=== PATIENT | male | born 1985 | race African-American/Black ===

== ENCOUNTER 2021-03-17 15:25 | Inpatient (IN) ==
--- NOTE | 2021-03-17 16:08 | XRay Report ---
XR KUB/Abdomen 1 view CLINICAL HISTORY: Constipation. COMPARISON STUDY: No previous studies for comparison. TECHNIQUE: Single view of the abdomen. FINDINGS: There is gaseous distention of the stomach and mild dilatation of a few proximal small bowel loops. T he more distal small bowel is not visualized. Minimal fecal material seen within the colon involving the descending colon. There is no evidence for significant fecal stasis or impaction. There is no izzy dence for organomegaly or gross intra-abdominal mass. No abnormal calcifications are seen along the c ourse of the urinary tracts bilaterally. No acute osseous pathology. IMPRESSION: 1.Gaseous distention of the stomach and mild dilatation of proximal small bowel loops with distal sma ll and large bowel loops decompressed. Early partial small bowel obstruction cannot be excluded. The findings can also be seen with mild ileus. No significant fecal stasis or impaction. ACT 112: Negative or not required by law. Electronically signed by: Jeff Powell M.D. 03/17/2021 4:07 PM
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
[2021-03-17 17:32] LABS: Basophils # (auto) 0.01 K/uL (0-0.2); Basophils % (auto) 0.1 %; Eosinophils # (auto) 0.04 K/uL (0-0.5); Eosinophils % (auto) 0.4 %; Hemoglobin 14.8 g/dL (14.0-18.0); Immature Granulocytes # (auto) 0.02 K/uL (0.00-0.02); Immature Granulocytes % (auto) 0.2 %; Lymphocytes % (auto) 17.5 %; Mean Corpuscular Hemoglobin 29.1 pg (25-34); Mean Corpuscular Hgb Conc 34.4 g/dL (32-36); Mean Corpuscular Volume 84.6 fL (80-100); Mean Platelet Volume 10.4 fL (7.4-10.4); Monocytes # (auto) 0.66 K/uL (0.11-0.59); Monocytes % (auto) 6.8 %; Neutrophils # (auto) 7.28 K/uL (1.4-6.5); Platelet Count 313 K/uL (130-400); RDW Coefficient of Variation 12.8 % (11.5-14.5); RDW Standard Deviation 39.2 fL (36.4-46.3); Red Blood Count 5.08 M/uL (4.7-6.1); White Blood Count 9.71 K/uL (4.8-10.8)
[2021-03-17] MEDS ORDERED: ONDANSETRON INJ 2 MG/ML 2 ML VIAL IV STA (17:38)
[2021-03-17 17:54] LABS: BUN Creatinine Ratio 12.5 (10-20); Calcium 9.9 mg/dl (8.5-10.1); Creatinine Clr Calc Pharmacy 110.7 ml/min; Est GFR (African American) 91.8 ml/min; Est GFR (Non-African American) 79.2 ml/min
[2021-03-17 17:57] LABS: Albumin Globulin Ratio 0.8 (0.9-2); Bilirubin,Total 2.6 mg/dl (0.2-1); Globulin 5.2 gm/dl (2.5-4.0); Total Protein 9.2 gm/dl (6.4-8.2)
[2021-03-17] MEDS ORDERED: OPTIRAY 320 100ml IV ONE (18:16)
--- NOTE | 2021-03-17 18:49 | CT Scan Report ---
CT abd pelvis IV con only CLINICAL HISTORY: constipation, possible SBO, gaseous stomach and upper small bowel on abdominal film s COMPARISON STUDY: Abdominal radiographs from 03/17/2021 CT DOSE: 651.10 mGy.cm TECHNIQUE: Standard CT of the Abdomen and Pelvis was performed with IV contrast. A dose lowering luca hnique was utilized adhering to the principles of ALARA. Contrast Volume: Optiray 320, 94 ml. The patient did not receive oral contrast. FINDINGS: Lung base: The lung bases are clear. Abdominal cavity and bowel: As suspected radiographically, there is evidence for high-grade partial s mall bowel obstruction in the region of the distal ileum with transition zone seen on images 204 thro ugh 230. The distal ileum is decompressed as is the colon. There is moderate to marked distention of the stomach with air and fluid. There is moderate dilatation of the jejunum and ileum to the level of transition with air-fluid levels present proximally and only fluid seen distally. These findings alberto ror the radiographic findings. The findings are most likely due to adhesions. There are surgical clip s present in the right side of the pelvis. No inflammatory changes are seen. There is no evidence for free air. There is a normal appendix in th e right lower quadrant. Liver: There is homogeneous attenuation of the liver parenchyma. There is no evidence for enhancing m ass lesion. Spleen: There is homogeneous attenuation of the splenic parenchyma. There is no enhancing mass lesion . Pancreas: There is homogeneous attenuation of the pancreatic parenchyma. There is no evidence for mas s lesion or peripancreatic fluid collection. Gall Bladder: The gallbladder is well distended with no evidence for intraluminal calculi, wall thick ening or pericholecystic edema. Adrenal glands: The adrenal glands are normal in size and attenuation. There is no evidence for enhan cing mass lesion. Kidneys: There is homogeneous attenuation of the renal parenchyma bilaterally. There is no evidence f or renal calculus or hydronephrosis. There is no evidence for enhancing mass. Bladder: The bladder is within normal limits with no evidence for focal mass, calculus or diverticulu m. : There is no evidence for pelvic mass or adenopathy. There is no evidence for pelvic ascites. Vasculature: There is no evidence for aneurysmal dilatation of the abdominal aorta. Osseous structures: There is no acute osseous pathology. IMPRESSION: 1. CT confirms the presence of a high-grade partial small bowel obstruction within the distal ileum a s described above. ACT 112: Negative or not required by law. Electronically signed by: Jeff Powell M.D. 03/17/2021 6:48 PM
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
--- NOTE | 2021-03-17 19:46 | XRay Report ---
XR KUB/Abdomen 1 view at 7:11 PM CLINICAL HISTORY: NG PLACEMENT. COMPARISON STUDY: 03/17/2021 at 3:36 PM TECHNIQUE: Single view of the abdomen. FINDINGS: Compared to previous examination, there is again gaseous distention of the stomach and proximal small bowel. NG tube has been placed extending into the mid body the stomach. There is no evidence for org anomegaly or gross intra-abdominal mass. No abnormal calcifications are seen along the course of the urinary tracts bilaterally. No acute osseous pathology. IMPRESSION: 1.Gaseous distention of the stomach and proximal small bowel is again seen correlating to partial sma ll bowel obstruction. NG tube within the mid body of the stomach. ACT 112: Negative or not required by law. Electronically signed by: Jeff Powell M.D. 03/17/2021 7:44 PM
[2021-03-17] MEDS ORDERED: ALBUTEROL HFA 8 GM INHALER INH PRN (21:31)
[2021-03-17] MEDS ORDERED: ONDANSETRON INJ 2 MG/ML 2 ML VIAL IV PRN (21:31)
[2021-03-17 21:54] LABS: Magnesium 2.2 mg/dl (1.8-2.4); Phosphorus 3.6 mg/dl (2.5-4.9)
[2021-03-17] MEDS: LACTATED RINGER'S 1,000 ML IV SCH (22:36)
[2021-03-17] MEDS: ENOXAPARIN INJ 40 MG/0.4 ML SYR SQ SCH (22:37)
[2021-03-18] MEDS ORDERED: KETOROLAC TROMETHAMINE 15 MG/ML VIAL IV ONE (06:01)
[2021-03-18] MEDS ORDERED: ACETAMINOPHEN 1000 MG/100 ML IV IV PRN (06:03)
[2021-03-18] MEDS: LACTATED RINGER'S 1,000 ML IV SCH ×2 (08:17→17:14)
[2021-03-18 08:44] LABS: Basophils # (auto) 0.02 K/uL (0-0.2); Basophils % (auto) 0.3 %; Eosinophils # (auto) 0.07 K/uL (0-0.5); Eosinophils % (auto) 1.2 %; Hematocrit (blood only) 37.9 % (42-52); Hemoglobin 12.8 g/dL (14.0-18.0); Immature Granulocytes # (auto) 0.01 K/uL (0.00-0.02); Immature Granulocytes % (auto) 0.2 %; Lymphocytes # (auto) 1.79 K/uL (1.2-3.4); Lymphocytes % (auto) 30.9 %; Mean Corpuscular Hgb Conc 33.8 g/dL (32-36); Mean Corpuscular Volume 85.9 fL (80-100); Mean Platelet Volume 10.5 fL (7.4-10.4); Monocytes # (auto) 0.98 K/uL (0.11-0.59); Monocytes % (auto) 16.9 %; Neutrophils # (auto) 2.93 K/uL (1.4-6.5); Neutrophils % (auto) 50.5 %; Platelet Count 295 K/uL (130-400); Red Blood Count 4.41 M/uL (4.7-6.1)
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
[2021-03-18 09:05] LABS: Albumin Level 3.3 gm/dl (3.4-5.0); BUN Creatinine Ratio 14.7 (10-20); Bilirubin Direct 0.4 mg/dl (0-0.2); Calcium 9.3 mg/dl (8.5-10.1); Creatinine Clr Calc Pharmacy 116.5 ml/min; Est GFR (African American) 98.8 ml/min; Est GFR (Non-African American) 85.2 ml/min; Potassium 3.9 mmol/L (3.5-5.1)
--- NOTE | 2021-03-18 09:06 | XRay Report ---
XR KUB/Abdomen 1 view CLINICAL HISTORY: SBO TECHNIQUE: 1 view of the abdomen was obtained. Comparison: Comparison is made to abdomen one view 03/17/2021 FINDINGS: Enteric tube side-port and tip lie within the stomach. The osseous structures are grossly unremarkabl e. Multiple dilated loops of small bowel are seen measuring up to 43 mm. A moderate amount of stool i s noted within the large bowel. IMPRESSION: Multiple dilated loops of small bowel measuring up to 43 mm, compatible with continued small bowel ob struction. ACT 112: Negative or not required by law. Electronically signed by: Jeremie Rivera M.D. 03/18/2021 9:04 AM
[2021-03-18 09:14] LABS: Bilirubin,Total 2.4 mg/dl (0.2-1); Total Protein 7.6 gm/dl (6.4-8.2)
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
[2021-03-18] MEDS ORDERED: hydrALAZINE HCL 20 MG/ML VIAL IV PRN (13:01)
[2021-03-18] MEDS: ENOXAPARIN INJ 40 MG/0.4 ML SYR SQ SCH (21:29)
[2021-03-19] MEDS: LACTATED RINGER'S 1,000 ML IV SCH ×2 (01:10→09:07)
[2021-03-19 08:21] LABS: Hematocrit (blood only) 34.8 % (42-52); Hemoglobin 11.7 g/dL (14.0-18.0); Mean Corpuscular Hemoglobin 28.7 pg (25-34); Mean Corpuscular Hgb Conc 33.6 g/dL (32-36); Mean Corpuscular Volume 85.5 fL (80-100); Mean Platelet Volume 9.9 fL (7.4-10.4); Platelet Count 252 K/uL (130-400); RDW Coefficient of Variation 12.7 % (11.5-14.5); RDW Standard Deviation 39.7 fL (36.4-46.3); Red Blood Count 4.07 M/uL (4.7-6.1); White Blood Count 5.18 K/uL (4.8-10.8)
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
[2021-03-19 08:49] LABS: Albumin Level 2.9 gm/dl (3.4-5.0); Calcium 8.6 mg/dl (8.5-10.1); Creatinine Clr Calc Pharmacy 138.9 ml/min; Est GFR (African American) 122.1 ml/min; Est GFR (Non-African American) 105.4 ml/min; Potassium 3.6 mmol/L (3.5-5.1)
[2021-03-19 08:52] LABS: Albumin Globulin Ratio 0.7 (0.9-2); Total Protein 6.9 gm/dl (6.4-8.2)
[2021-03-19 09:01] LABS: Bilirubin,Total 2.6 mg/dl (0.2-1)
[2021-03-19] MEDS ORDERED: KETOROLAC TROMETHAMINE 15 MG/ML VIAL IV ONE (11:00)
[2021-03-19] MEDS: NSS + 20MEQ KCL 20 MEQ/1,000 ML BAG IV SCH ×2 (11:07→18:04)
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
[2021-03-19] MEDS: ENOXAPARIN INJ 40 MG/0.4 ML SYR SQ SCH (21:30)
[2021-03-20] MEDS: NSS + 20MEQ KCL 20 MEQ/1,000 ML BAG IV SCH ×3 (01:51→19:50)
[2021-03-20 06:07] LABS: Hematocrit (blood only) 32.9 % (42-52); Hemoglobin 10.9 g/dL (14.0-18.0); Mean Corpuscular Hemoglobin 28.6 pg (25-34); Mean Corpuscular Hgb Conc 33.1 g/dL (32-36); Mean Corpuscular Volume 86.4 fL (80-100); Platelet Count 248 K/uL (130-400); RDW Coefficient of Variation 12.7 % (11.5-14.5); RDW Standard Deviation 40.4 fL (36.4-46.3); Red Blood Count 3.81 M/uL (4.7-6.1); White Blood Count 4.55 K/uL (4.8-10.8)
[2021-03-20 06:54] LABS: Albumin Level 3.1 gm/dl (3.4-5.0); BUN Creatinine Ratio 12.1 (10-20); Bilirubin Direct 0.3 mg/dl (0-0.2); Calcium 8.5 mg/dl (8.5-10.1); Creatinine Clr Calc Pharmacy 163.2 ml/min; Est GFR (African American) 135.1 ml/min; Est GFR (Non-African American) 116.6 ml/min; Magnesium 2.2 mg/dl (1.8-2.4); Potassium 3.7 mmol/L (3.5-5.1)
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
--- NOTE | 2021-03-20 08:42 | XRay Report ---
KUB HISTORY: Small bowel obstruction. COMPARISON: KUB 03/19/2021. FINDINGS: There again noted a few mildly dilated gas-filled loops of small bowel seen within the mida bdomen. These have slightly improved in the interval and favor a resolving small bowel obstruction. T here is gas and stool seen throughout the colon. There are suture material within the left side the a bdomen. No renal calculi. No ureteral calculi. No pneumoperitoneum or pneumatosis. Stable metallic d ensity within the right deep pelvis. IMPRESSION: Slight improvement in the dilated loops of small bowel within the midabdomen. Findings favor a resolv ing small bowel obstruction. ACT 112: Negative or not required by law. Electronically signed by: Jl Tellez M.D. 03/20/2021 8:41 AM
--- NOTE | 2021-03-20 10:15 | Surgery Progress Note ---
Date of Service March 20, 2021 Assessment & Plan (1) SBO (small bowel obstruction): Plan: Resolving Encouraged ambulation advance diet to full liquids Dr. Kapoor has seen and examined patient, agrees with above Admission and Anticipated Discharge Date Admission Date: March 17, 2021 Subjective feeling better today than yesterday still having some pain passing gas, no formed stool just liquid watery bowel movement this morning no nausea or vomiting urinating without difficulty Physical Exam Constitutional: well developed and well nourished; no acute distress and not ill appearing Gastrointestinal (Abdomen): Inspection/Auscultation: abdomen normal to inspection, + abdomen distended (mild), + abdominal surgical scar (midline laparotomy scar) and + hypoactive bowel sounds; + abnormal bowel sounds and no high-pitched sounds Percussion/Palpation: + abdomen tender (very minimal) and abdomen soft; no guarding and abdomen not rigid Skin: no rashes, warm and dry Psychiatric: Orientation: alert and oriented x 3 Results & Data ([facility]) Vital Signs (Past 12 Hours) Vital Signs Temp Pulse Resp BP Pulse Ox 03/20/21 07:17 36.8 C 84 20 120/69 98 03/19/21 22:19 36.9 C 64 16 128/78 98 Laboratory Results 03/20/21 03/20/21 Range/Units 05:33 05:33 WBC 4.55 L (4.8-10.8) K/uL RBC 3.81 L (4.7-6.1) M/uL Hgb 10.9 L (14.0-18.0) g/dL Hct 32.9 L (42-52) % MCV 86.4 (80-100) fL MCH 28.6 (25-34) pg MCHC 33.1 (32-36) g/dL RDW Std Deviation 40.4 (36.4-46.3) fL RDW Coeff of Julian 12.7 (11.5-14.5) % Plt Count 248 (130-400) K/uL MPV 10.0 (7.4-10.4) fL Sodium 139 (136-145) mmol/L Potassium 3.7 (3.5-5.1) mmol/L Chloride 107 (98-107) mmol/L Carbon Dioxide 27 (21-32) mmol/L Anion Gap 5.0 (3-11) BUN 10 D (7-18) mg/dl Creatinine 0.80 (0.6-1.4) mg/dl Est Cr Clr Drug Dosing 163.2 ml/min Est GFR ( Amer) 135.1 ml/min Est GFR (Non-Af Amer) 116.6 ml/min BUN/Creatinine Ratio 12.1 (10-20) Glucose 85 (70-99) mg/dl Calcium 8.5 (8.5-10.1) mg/dl Magnesium 2.2 (1.8-2.4) mg/dl Total Bilirubin 2.0 H (0.2-1) mg/dl Direct Bilirubin 0.3 H (0-0.2) mg/dl AST 21 (15-37) U/L ALT 27 (12-78) Alkaline Phosphatase 88 (45-117) U/L Total Protein 7.0 (6.4-8.2) gm/dl Albumin 3.1 L (3.4-5.0) gm/dl Diagnostic Findings KUB HISTORY: Small bowel obstruction. COMPARISON: KUB 03/19/2021. FINDINGS: There again noted a few mildly dilated gas-filled loops of small bowel seen within the midabdomen. These have slightly improved in the interval and favor a resolving small bowel obstruction. There is gas and stool seen throughout the colon. There are suture material within the left side the abdomen. No renal calculi. No ureteral calculi. No pneumoperitoneum or pneumatosis. Stable metallic density within the right deep pelvis. IMPRESSION: Slight improvement in the dilated loops of small bowel within the midabdomen. Findings favor a resolving small bowel obstruction.
[2021-03-20] MEDS: ENOXAPARIN INJ 40 MG/0.4 ML SYR SQ SCH (22:47)
[2021-03-21 07:30] LABS: Hematocrit (blood only) 33.6 % (42-52); Hemoglobin 11.5 g/dL (14.0-18.0); Mean Corpuscular Hgb Conc 34.2 g/dL (32-36); Mean Corpuscular Volume 84.6 fL (80-100); Mean Platelet Volume 9.9 fL (7.4-10.4); Platelet Count 284 K/uL (130-400); RDW Coefficient of Variation 12.5 % (11.5-14.5); RDW Standard Deviation 38.5 fL (36.4-46.3); Red Blood Count 3.97 M/uL (4.7-6.1); White Blood Count 4.67 K/uL (4.8-10.8)
[2021-03-21 08:03] LABS: Albumin Level 3.1 gm/dl (3.4-5.0); BUN Creatinine Ratio 6.4 (10-20); Bilirubin Direct 0.3 mg/dl (0-0.2); Calcium 8.9 mg/dl (8.5-10.1); Creatinine Clr Calc Pharmacy 138.9 ml/min; Est GFR (African American) 122.1 ml/min; Est GFR (Non-African American) 105.4 ml/min; Magnesium 2.1 mg/dl (1.8-2.4); Potassium 3.7 mmol/L (3.5-5.1)
[2021-03-21] MEDS ORDERED: KETOROLAC TROMETHAMINE 15 MG/ML VIAL IV PRN (08:03)
[2021-03-21 08:06] LABS: Total Protein 7.5 gm/dl (6.4-8.2)
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
[2021-03-21 08:46] LABS: Bilirubin,Total 1.8 mg/dl (0.2-1)
[2021-03-21] MEDS ORDERED: bisacodyL 10 MG SUPP PR STA (09:15)
[2021-03-21] MEDS: NSS + 20MEQ KCL 20 MEQ/1,000 ML BAG IV SCH (09:33)
[2021-03-21] MEDS: POLYETHYLENE (MIRALAX) 17 GM PACK PO SCH ×2 (09:47→20:57)
--- NOTE | 2021-03-21 10:08 | XRay Report ---
KUB HISTORY: Small bowel obstruction. Follow-up. COMPARISON: KUB 03/20/2021. FINDINGS: Continued improvement in the mildly dilated gas-filled loops of small bowel within the mida bdomen. There are suture material within the left side of the abdomen. Stable metallic density within the right deep pelvis. Postoperative changes partially visualized within the proximal left femur. N o renal calculi. No ureteral calculi. No pneumoperitoneum or pneumatosis. IMPRESSION: Continued improvement in the gas-filled mildly dilated loops of small bowel within the midabdomen. Th is likely represents a resolving small bowel obstruction. ACT 112: Negative or not required by law. Electronically signed by: Jl Tellez M.D. 03/21/2021 10:07 AM
--- NOTE | 2021-03-21 11:07 | Surgery Progress Note ---
Date of Service March 21, 2021 Assessment & Plan (1) SBO (small bowel obstruction): Plan: Resolving Encouraged ambulation may need miralax and suppository as had no bowel movement in 1 week and stool seen in colon on KUB okay for low fiber diet possibly discharge back to [facility] today, medicine team to determine Dr. Kapoor has seen and examined pt, agrees with above. Admission and Anticipated Discharge Date Admission Date: March 17, 2021 Subjective feeling about same as yesterday passing a little more gas but still no bowel movement, last bowel movement was last Saturday Tolerating full liquids but does have some pain when feels bloated no nausea or vomiting Physical Exam Constitutional: WD/WN, vitals as above no acute distress and not ill appearing Gastrointestinal (Abdomen): Inspection/Auscultation: abdomen normal to inspection and + abdominal surgical scar (midline laparotomy scar); abdomen not distended and + abnormal bowel sounds Percussion/Palpation: abdomen soft; abdomen nontender, no guarding and abdomen not rigid Skin: no rashes, warm and dry Psychiatric: Orientation: alert and oriented x 3 Results & Data ([facility]) Vital Signs (Past 12 Hours) Vital Signs Temp Pulse Resp BP Pulse Ox 03/21/21 07:03 36.7 C 59 L 18 125/76 97 Laboratory Results 03/21/21 03/21/21 Range/Units 06:43 06:43 WBC 4.67 L (4.8-10.8) K/uL RBC 3.97 L (4.7-6.1) M/uL Hgb 11.5 L (14.0-18.0) g/dL Hct 33.6 L (42-52) % MCV 84.6 (80-100) fL MCH 29.0 (25-34) pg MCHC 34.2 (32-36) g/dL RDW Std Deviation 38.5 (36.4-46.3) fL RDW Coeff of Julian 12.5 (11.5-14.5) % Plt Count 284 (130-400) K/uL MPV 9.9 (7.4-10.4) fL Sodium 139 (136-145) mmol/L Potassium 3.7 (3.5-5.1) mmol/L Chloride 107 (98-107) mmol/L Carbon Dioxide 29 (21-32) mmol/L Anion Gap 3.0 (3-11) BUN 6 L (7-18) mg/dl Creatinine 0.94 (0.6-1.4) mg/dl Est Cr Clr Drug Dosing 138.9 ml/min Est GFR ( Amer) 122.1 ml/min Est GFR (Non-Af Amer) 105.4 ml/min BUN/Creatinine Ratio 6.4 L (10-20) Glucose 90 (70-99) mg/dl Calcium 8.9 (8.5-10.1) mg/dl Magnesium 2.1 (1.8-2.4) mg/dl Total Bilirubin 1.8 H (0.2-1) mg/dl Direct Bilirubin 0.3 H (0-0.2) mg/dl AST 24 (15-37) U/L ALT 31 (12-78) Alkaline Phosphatase 94 (45-117) U/L Total Protein 7.5 (6.4-8.2) gm/dl Albumin 3.1 L (3.4-5.0) gm/dl
[2021-03-21] MEDS: ENOXAPARIN INJ 40 MG/0.4 ML SYR SQ SCH (20:57)
[2021-03-22] MEDS ORDERED: MAGNESIUM CITRATE 296 ML/BTL PO SCH (06:30)
[2021-03-22 07:37] LABS: Hematocrit (blood only) 37.9 % (42-52); Mean Corpuscular Hemoglobin 29.1 pg (25-34); Mean Corpuscular Hgb Conc 34.3 g/dL (32-36); Mean Platelet Volume 9.6 fL (7.4-10.4); Platelet Count 327 K/uL (130-400); RDW Coefficient of Variation 12.5 % (11.5-14.5); RDW Standard Deviation 38.4 fL (36.4-46.3); Red Blood Count 4.46 M/uL (4.7-6.1); White Blood Count 5.61 K/uL (4.8-10.8)
[2021-03-22 08:03] LABS: Albumin Level 3.6 gm/dl (3.4-5.0); BUN Creatinine Ratio 8.7 (10-20); Calcium 9.1 mg/dl (8.5-10.1); Creatinine Clr Calc Pharmacy 129.3 ml/min; Est GFR (African American) 112.5 ml/min; Est GFR (Non-African American) 97.1 ml/min; Magnesium 2.3 mg/dl (1.8-2.4); Potassium 3.8 mmol/L (3.5-5.1)
[2021-03-22 08:05] LABS: Albumin Globulin Ratio 0.8 (0.9-2); Bilirubin,Total 1.4 mg/dl (0.2-1); Globulin 4.7 gm/dl (2.5-4.0); Total Protein 8.3 gm/dl (6.4-8.2)
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
--- NOTE | 2021-03-22 09:42 | XRay Report ---
KUB CLINICAL HISTORY: Small bowel obstruction. FINDINGS: 2 AP, portable, supine abdominal radiographs are compared to study dated 03/21/2021 and cor related with abdominal CT dated 03/17/2021. Suture material projects over the left midabdomen. There is mild gaseous distention of the small bowel loops with no radiographic evidence of high-grade obstr uction. No evidence of intraperitoneal free air is seen on these supine views. A metallic foreign bod y is again seen projecting over the right pelvis. The bony structures appear intact. Postoperative ch hamzah is noted in the left proximal femur. The lung bases appear clear. IMPRESSION: There is mild gaseous distention of the bowel loops with no radiographic evidence of high -grade obstruction. Electronically signed by: Dany Flores M.D. 03/22/2021 9:41 AM
[2021-03-22] MEDS: amLODIPine BESYLATE 5 MG TAB PO SCH (10:24)
[2021-03-22] MEDS: POLYETHYLENE (MIRALAX) 17 GM PACK PO SCH ×2 (10:24→20:14)
[2021-03-22] MEDS: MAGNESIUM CITRATE 296 ML/BTL PO SCH (12:12)
--- NOTE | 2021-03-22 14:03 | Surgery Progress Note ---
Date of Service March 22, 2021 Assessment & Plan (1) SBO (small bowel obstruction): Plan: Resolving Encouraged ambulation may need miralax and suppository as had no bowel movement in 1 week and stool seen in colon on KUB okay for low fiber diet possibly discharge back to alf today, medicine team to determine Dr. Kapoor has seen and examined pt, agrees with above. 03/22/2021 2:04PM, DR. Charles Kumari SBO doing better, resolved SBO, tolerated diet, pt can be discharged today, sign off today, please call with questions, Thanks, Admission and Anticipated Discharge Date Admission Date: March 17, 2021 Supervising Physician Co-Signing Physician Notes PA Supervision Note: I did not personally see or examine the patient today, but I verified all briceño points of NYA Riddle's assessment and plan with the following exceptions/additions: None Subjective patient evaluated this afternoon small liquid BM but still feeling bloated/gas pain. has been ambulating and plans for frequent ambulation tonight but still not feeling comfortable to go home seen by surgery and told to see how does and will see in am. discussed continuing bowel regimen at discharge. has some reflux. will order pepcid to see if improvement. no fever, chills, chest pain, shortness of breath, nausea, vomiting or dysuria at this time. Hopeful for BM and d/c in AM. 03/22/2021 2:01PM Dr. Charles Kumari SBO, doing better, passed some liquid stool, no abdominal pain, tolerated diet, no fever, Review of Systems Constitutional: no fever and no chills Eyes: no problem reported Ear, Nose, Mouth, Throat: no problem reported Respiratory: no cough and no dyspnea Cardiovascular: no chest pain Gastrointestinal: no abdominal pain, no nausea and no vomiting Genitourinary: no dysuria Musculoskeletal: no back pain, no neck pain and no joint pain Integumentary: no rash and no lesions Neurologic: no localized weakness and no generalized weakness Psychiatric: no behavioral changes Endocrine: no problem reported Hematologic / Lymphatic: no problem reported Allergy / Immunological: no problem reported Physical Exam Constitutional: WD/WN, vitals as above Eyes: PERRL, conjunctivae normal, anicteric sclerae Neck: trachea midline, no thyromegaly Respiratory: normal respiratory effort, lungs clear to auscultation Cardiovascular: RRR, no murmur, no edema Gastrointestinal (Abdomen): soft, middle line scar, NT, ND, BS + Neurologic: patellar DTR's 2+ bilat, sensation intact Psychiatric: A+Ox3, euthymic affect Results & Data ([facility]) Vital Signs (Past 12 Hours) Vital Signs Temp Pulse Resp BP Pulse Ox 03/22/21 08:01 36.6 C 54 L 16 139/75 97 Laboratory Results Abnormal lab results 03/22/21 03/22/21 Range/Units 07:19 07:19 RBC 4.46 L (4.7-6.1) M/uL Hgb 13.0 L (14.0-18.0) g/dL Hct 37.9 L (42-52) % BUN/Creatinine Ratio 8.7 L (10-20) Total Bilirubin 1.4 H (0.2-1) mg/dl Total Protein 8.3 H (6.4-8.2) gm/dl Globulin 4.7 H (2.5-4.0) gm/dl Albumin/Globulin Ratio 0.8 L (0.9-2) Diagnostic Findings KUB CLINICAL HISTORY: Small bowel obstruction. FINDINGS: 2 AP, portable, supine abdominal radiographs are compared to study dated 03/21/2021 and correlated with abdominal CT dated 03/17/2021. Suture material projects over the left midabdomen. There is mild gaseous distention of the small bowel loops with no radiographic evidence of high-grade obstruction. No evidence of intraperitoneal free air is seen on these supine views. A metallic foreign body is again seen projecting over the right pelvis. The bony structures appear intact. Postoperative change is noted in the left proximal femur. The lung bases appear clear. IMPRESSION: There is mild gaseous distention of the bowel loops with no radiographic evidence of high-grade obstruction.
[2021-03-22] MEDS: FAMOTIDINE 20 MG TAB PO SCH (15:11)
[2021-03-22] MEDS: DOCUSATE SODIUM/SENNA 50/8.6MG TAB PO SCH (15:13)
[2021-03-22] MEDS: ENOXAPARIN INJ 40 MG/0.4 ML SYR SQ SCH (22:09)
[2021-03-23] MEDS: DOCUSATE SODIUM/SENNA 50/8.6MG TAB PO SCH (07:58)
[2021-03-23] MEDS: FAMOTIDINE 20 MG TAB PO SCH (07:59)
[2021-03-23] MEDS: POLYETHYLENE (MIRALAX) 17 GM PACK PO SCH ×2 (07:59→21:09)
[2021-03-23] MEDS: amLODIPine BESYLATE 5 MG TAB PO SCH (07:59)
[2021-03-23 08:00] LABS: Creatinine Clr Calc Pharmacy 142.1 ml/min; Est GFR (African American) 126.1 ml/min; Est GFR (Non-African American) 108.8 ml/min
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
[2021-03-23 08:52] LABS: Hematocrit (blood only) 35.1 % (42-52); Hemoglobin 11.9 g/dL (14.0-18.0); Mean Corpuscular Hemoglobin 28.6 pg (25-34); Mean Corpuscular Hgb Conc 33.9 g/dL (32-36); Mean Corpuscular Volume 84.4 fL (80-100); Mean Platelet Volume 10.3 fL (7.4-10.4); Platelet Count 326 K/uL (130-400); RDW Coefficient of Variation 12.6 % (11.5-14.5); RDW Standard Deviation 38.6 fL (36.4-46.3); Red Blood Count 4.16 M/uL (4.7-6.1); White Blood Count 6.21 K/uL (4.8-10.8)
--- NOTE | 2021-03-23 09:37 | XRay Report ---
KUB CLINICAL HISTORY: Small bowel obstruction. FINDINGS: 2 AP, portable, supine abdominal radiographs are compared to study dated 03/22/2021 and cor related with abdominal CT dated 03/17/2021. Suture material projects over the left midabdomen. There is mild gaseous distention of the small bowel loops with no radiographic evidence of high-grade obstr uction. Gas is seen throughout the colon. No evidence of intraperitoneal free air is seen on these fraga pine views. A metallic foreign body is again seen projecting over the right pelvis. The bony structur es appear intact. Postoperative change is noted in the left proximal femur. The lung bases appear syed ar. IMPRESSION: No significant change from yesterday. There is persistent mild gaseous distention of the bowel loops with no radiographic evidence of high-grade obstruction. Electronically signed by: Dany Flores M.D. 03/23/2021 9:36 AM
[2021-03-23 09:45] LABS: Albumin Level 3.3 gm/dl (3.4-5.0); BUN Creatinine Ratio 10.5 (10-20); Bilirubin Direct 0.2 mg/dl (0-0.2); Bilirubin,Total 0.7 mg/dl (0.2-1); Calcium 8.7 mg/dl (8.5-10.1); Creatinine Clr Calc Pharmacy 137.5 ml/min; Est GFR (African American) 121.3 ml/min; Est GFR (Non-African American) 104.6 ml/min; Potassium 3.5 mmol/L (3.5-5.1); Total Protein 7.6 gm/dl (6.4-8.2)
[2021-03-23] MEDS ORDERED: MINERAL OIL ENEMA 133 ML BTL PR ONE (11:00)
[2021-03-23] MEDS: MAGNESIUM CITRATE 296 ML/BTL PO SCH (12:15)
[2021-03-23] MEDS: ENOXAPARIN INJ 40 MG/0.4 ML SYR SQ SCH (22:21)
[2021-03-24] MEDS: POLYETHYLENE (MIRALAX) 17 GM PACK PO SCH ×2 (07:37→21:26)
[2021-03-24] MEDS: FAMOTIDINE 20 MG TAB PO SCH (07:37)
[2021-03-24] MEDS: DOCUSATE SODIUM/SENNA 50/8.6MG TAB PO SCH (07:37)
[2021-03-24] MEDS: MAGNESIUM CITRATE 296 ML/BTL PO SCH (11:11)
--- NOTE | 2021-03-24 13:07 | XRay Report ---
KUB HISTORY: Small bowel obstruction. Follow-up. COMPARISON: KUB 03/23/2021. FINDINGS: Slight improvement in the gas-filled mildly dilated loops of small bowel. These are now see n predominantly within the right side the abdomen. There is gas and stool within the colon. Postopera tive changes again noted within the proximal left femur. Metallic foreign body again noted within the right deep pelvis. No renal calculi. No ureteral calculi. No pneumoperitoneum or pneumatosis. IMPRESSION: Interval improvement in the gas-filled mildly dilated loops of small bowel within the right side of t he abdomen. No evidence for high-grade bowel obstruction. ACT 112: Negative or not required by law. Electronically signed by: Jl Tellez M.D. 03/24/2021 1:06 PM
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
--- NOTE | 2021-03-24 21:23 | Fluoroscopy Report ---
SMALL BOWEL FOLLOW-THROUGH CLINICAL HISTORY: Small bowel obstruction. COMPARISON STUDY: KUB dated 03/24/2021. Abdominal CT dated 03/17/2021. TECHNIQUE: An abdominal build technician radiograph was performed. The patient then consumed several of thin bar ium and a small follow-through was performed. 9 overhead radiographs were obtained. FINDINGS: The abdominal build technician radiograph shows mild gaseous distention of the small bowel loops with no evidenc e of high-grade obstruction. No evidence of intraperitoneal free air is seen on this supine image. Th ere are no abnormal abdominal calcifications. A metallic foreign body is again seen projecting the ri t lower quadrant. Postoperative change is noted in the left proximal femur. Following contrast ingestion there is slightly delayed transit time with contrast likely present in t he right colon at 2 hours and 15 minutes. Additional imaging was performed up to 5 hours and 25 minut es to confirm colonic transit. Contrast is clearly seen within the transverse colon at 5 hours and 25 minutes. There is distention of the stomach. There are mildly distended small bowel loops which jagdish ure up to 4 cm. No transition point is identified. The small bowel mucosal pattern is grossly normal. There is no radiographic evidence of stricture or mass. IMPRESSION: 1. Mildly delayed transit time with contrast likely reaching the colon at 2 hours and 15 minutes. 2. There is distention of the stomach and small bowel loops which may represent low grade/partial obs truction versus ileus. Clinical correlation will be required. ACT 112: Negative or not required by law. Electronically signed by: Dany Flores M.D. 03/24/2021 9:22 PM
[2021-03-24] MEDS: ENOXAPARIN INJ 40 MG/0.4 ML SYR SQ SCH (21:26)
[2021-03-25] MEDS: DOCUSATE SODIUM/SENNA 50/8.6MG TAB PO SCH (08:13)
[2021-03-25] MEDS: POLYETHYLENE (MIRALAX) 17 GM PACK PO SCH (08:14)
[2021-03-25] MEDS: FAMOTIDINE 20 MG TAB PO SCH (08:14)
[2021-03-25] MEDS: MAGNESIUM CITRATE 296 ML/BTL PO SCH (10:56)
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
== END 2021-03-25 15:43 | DRG 390 ==
LOC: ED 15:25 → 3E 19:27 → SUATTDRO 19:27 → 3E 20:25